=== PATIENT | male | born 1975 | race Two or more races ===

== ENCOUNTER 2022-11-20 06:45 | Inpatient (IN) | payer OTHER ==
[~2022-11-20] VITALS: Ht 165.1 cm; Wt 83.9 kg
[~2022-11-20 06:45] MED LIST: ATORVASTATIN CA40 MG PO; AVAPRO300 MG PO; CLARITIN10 M1 PO; HORIZANT300 MG PO; HUMULIN R100 UNIT/1; LANTUS; LASIX20 MG PO; NORVASC5 MG PO; PEPCID AC20 MG PO; TOPROL XL100 M1 PO; ULTRACET PO; ZEGERID 40 MG1 EACH PO; [UNRECOGNIZED DRUG - OTHER] PO
[2022-11-23] MEDS ORDERED: GABAPENTIN300 M2 (08:48)
[2022-11-23] MEDS ORDERED: FUROSEMIDE20 MG (08:48)
[2022-11-23] MEDS ORDERED: IRBESARTAN-HCT1 EAC1 (08:48)
[2022-11-23] MEDS ORDERED: METFORMIN HCL500 M4 (08:48)
== END 2022-11-27 15:57 | disposition home or self-care (01) | DRG 693 ==
LOC: CIR.AMB 06:45 → O/R 19:41 → ICU 11-21 13:12 → SURG 11-23 20:30
PROVIDERS: ADMIT Urology; ATTEND Urology
PROC: 0TCD8ZZ Extirpation of Matter from Urethra, Via Natural or Artificial Opening Endoscopic (ICD-10-PCS; principal; 2022-11-21)
PROC: 0TFD8ZZ Fragmentation in Urethra, Via Natural or Artificial Opening Endoscopic (ICD-10-PCS; 2022-11-21)
PROC: 5A1945Z Respiratory Ventilation, 24-96 Consecutive Hours (ICD-10-PCS; 2022-11-21)
DX: N21.1 Calculus in urethra (principal); J95.822 Acute and chronic postprocedural respiratory failure; E66.2 Morbid (severe) obesity with alveolar hypoventilation; N21.0 Calculus in bladder; N42.0 Calculus of prostate; N40.1 Benign prostatic hyperplasia with lower urinary tract symptoms; R33.8 Other retention of urine; I12.9 Hypertensive chronic kidney disease with stage 1 through stage 4 chronic kidney disease, or unspecified chronic kidney disease; E11.22 Type 2 diabetes mellitus with diabetic chronic kidney disease; N18.9 Chronic kidney disease, unspecified; E78.00 Pure hypercholesterolemia, unspecified; J44.9 Chronic obstructive pulmonary disease, unspecified; Q05.9 Spina bifida, unspecified; Z89.612 Acquired absence of left leg above knee; Z89.611 Acquired absence of right leg above knee; Z79.4 Long term (current) use of insulin; Z68.37 Body mass index [BMI] 37.0-37.9, adult

== ENCOUNTER 2022-12-09 13:26 | Emergency (ER) | payer OTHER ==
[~2022-12-09] VITALS: Ht 165.1 cm; Wt 86.2 kg
[~2022-12-09 13:26] MED LIST changes: +FUROSEMIDE20 MG; +GABAPENTIN300 M2; +IRBESARTAN-HCT1 EAC1; +METFORMIN HCL500 M4
[2022-12-09] MEDS ORDERED: DUI500 PO (19:57)
== END 2022-12-09 21:20 | disposition home or self-care (01) ==
LOC: ER 13:26
DX: N50.812 Left testicular pain (principal); E78.00 Pure hypercholesterolemia, unspecified; J44.9 Chronic obstructive pulmonary disease, unspecified; E11.9 Type 2 diabetes mellitus without complications; Z79.4 Long term (current) use of insulin; N45.3 Epididymo-orchitis; K80.20 Calculus of gallbladder without cholecystitis without obstruction; N39.0 Urinary tract infection, site not specified; N45.1 Epididymitis

== ENCOUNTER → 2023-03-02 06:00 | Outpatient (CLI) | payer OTHER ==
[~2023-03-02 06:00] MED LIST changes: +DUI500 PO; +OSEL75CA PO
[2023-03-02 13:30] LABS: CALCIUM 8.9 mg/dL (8.5-10.1); CREATININE SERUM 1.13 mg/dL (0.70-1.30); GFR 70.17; POTASSIUM 4.48 mEq/L (3.5-5.1)
[2023-03-02 13:51] LABS: PARTIAL THROMBOPLASTIN TIME 21.4 SECONDS (22.0-34.0); PROTHROMBIN TIME 10.5 SECONDS (9.0-11.5)
[2023-03-02 14:05] LABS: HEMATOCRIT 45.2 % (39.0-48.0); HEMOGLOBIN 14.4 g/dL (13-16.00); MEAN CELL VOLUME 90.4 fL (80.0-100.00); MEAN CORPUSCULAR HEMOGLOBIN 28.9 pg (27.00-32.0); PLATELET COUNT 158 K/uL (150-450); RED CELL DISTRIBUTION WIDTH 14.7 % (11.5-14.5)
[2023-03-02 14:51] LABS: MYCOPLASMA PNEUMONIAE IGM NON REACTIVE (NO REACTIVE)
== END | disposition home or self-care (01) ==
LOC: LAB 06:00 → ADM 08:00 → EDSTATUS 03-05 08:00 → CIR.AMB 03-05 08:00
PROVIDERS: ATTEND Urology
DX: Z01.811 Encounter for preprocedural respiratory examination (principal); Z01.810 Encounter for preprocedural cardiovascular examination; Z01.812 Encounter for preprocedural laboratory examination; N21.0 Calculus in bladder; R31.0 Gross hematuria

== ENCOUNTER 2023-04-09 12:18 | Outpatient (CLI) | payer OTHER | END 2023-04-09 13:08 | disposition home or self-care (01) | LOC: EKG 12:18 | PROVIDERS: ATTEND Internal Medicine | DX: I10 Essential (primary) hypertension (principal) ==